=== PATIENT | female | born 1950 | race Caucasian/White ===

== ENCOUNTER 2020-11-15 16:27 | Emergency (ER) | payer MEDICARE, BC, OTHER, SELFPAY ==
[2020-11-15] VITALS (59 sets, daily range): BP systolic 53–139; BP diastolic 24–107; PULSE 87–173; RESP 13–41; TEMP 36.8; O2SAT 38–100
--- NOTE | ~2020-11-15 | XR_ITS ---
XR chest ET placement 11/15/2020 21:21 Indication: Endotracheal tube placement Procedure: AP portable chest Comparison: 11/15/2020 Findings: Endotracheal tube tip 2.3 cm above the lizzie. NG tube in the stomach. Cardiomegaly. There is persistent right perihilar and basilar airspace disease. Developing left perihilar airspace diseas e with peribronchial thickening. Small right pleural effusion. Impression: 1: Developing bilateral airspace disease which may represent edema or pneumonia. 2: Cardiomegaly. 3: Small right pleural effusion. Reviewed, dictated and finalized at location A. Impression: 1: Developing bilateral airspace disease which may represent edema or pneumonia . 2: Cardiomegaly. 3: Small right pleural effusion.
--- NOTE | ~2020-11-15 | CT_ITS ---
EXAMINATION: CT BRAIN W/O DATE: 11/15/2020 21:49 INDICATION: Intubation. Sepsis. TECHNIQUE: Computed tomography (CT) of the head was performed without intravenous contrast. The dose- length product was 681.00 mGy-cm. Automated exposure control and iterative reconstruction technique w ere employed. COMPARISON: No prior studies for comparison. FINDINGS: Normal brain parenchymal volume for age. Normal smith-white differentiation. No acute intrac ranial hemorrhage, infarction, mass or mass effect. No ventriculomegaly or midline shift. Midline sagittal images demonstrate a normal corpus callosum, c raniovertebral junction and sella turcica. Basilar cisterns are patent. Paranasal sinuses and mastoids are pneumatized. No depressed skull fractures. IMPRESSION: 1. No acute intracranial abnormality. Reviewed, dictated and finalized at location A.
--- NOTE | ~2020-11-15 | CT_ITS ---
EXAMINATION: CT chest abdomen pelvis w con DATE: 11/15/2020 21:55 CDT INDICATION: CHF. Sepsis. Pneumonia. TECHNIQUE: Computed tomography (CT) of the chest, abdomen, and pelvis was performed with 100 cc Omnip aque 350 intravenous contrast. The dose-length product was 681.00 mGy-cm. Automated exposure control and iterative reconstruction technique were employed. COMPARISON: None FINDINGS: CHEST CT: There are bilateral pleural effusions, partially loculated on the right. There is cardiomegaly. There is contrast reflux into the IVC and hepatic veins, consistent with right heart failure. There is an endotracheal tube present. NG tube in the stomach. There is mediastinal lymphadenopathy. For instance right paratracheal lymph node measures 11 mm short axis. There are patchy areas of groundglass opaci fication of the upper lobes and more confluent in the right lower lobe. There is dependent atelectasi s. ABDOMEN/PELVIS CT: There is moderate peripancreatic fat stranding extending into the mesentery, consistent with pancreat itis. Clinically correlate. There is mild diffuse subcutaneous edema. The spleen, adrenal glands and kidneys are unremarkable. There is fluid in the right paracolic gutter. Jimenez catheter present in the bladder. There is moderate thoracic and lumbar spondylosis. No focal lytic or blastic lesions. Hepat ic steatosis. IMPRESSION: 1. Multifocal groundglass consolidation most confluent in the right lower lobe, favoring pneumonia. 2: Bilateral pleural effusions, right greater than left, loculated on the right. 3: Contrast refluxing IVC and hepatic veins, consistent with right heart failure. 4: Moderate stranding of the peripancreatic fat, compatible with pancreatitis. Correlate with lab gary ues. Reviewed, dictated and finalized at location A. IMPRESSION: 1. Multifocal groundglass consolidation most confluent in the right lower lobe, favoring pneumonia. 2: Bilateral pleural effusions, right greater than left, loculated on the right . 3: Contrast refluxing IVC and hepatic veins, consistent with right heart failur e. 4: Moderate stranding of the peripancreatic fat, compatible with pancreatitis. Correlate with lab values.
--- NOTE | ~2020-11-15 | XR_ITS ---
XR chest 2V 11/15/2020 17:07 Indication: Shortness of breath Procedure: PA and lateral views of the chest Comparison: No prior studies for comparison. Findings: Cardiomegaly. Airspace disease of the right mid and lower lung zone, consistent with pneumo adia. Small right pleural effusion. Left lung clear. No pneumothorax. Impression: 1: Airspace disease right mid and lower lung zone, compatible with pneumonia. 2: Small right pleural effusion. 3: Cardiomegaly. Reviewed, dictated and finalized at location A. Impression: 1: Airspace disease right mid and lower lung zone, compatible with pneumonia. 2: Small right pleural effusion. 3: Cardiomegaly.
--- NOTE | ~2020-11-15 | XR_ITS ---
XR abdomen NG/feed tube insert INDICATION: Evaluate NG tube position. TECHNIQUE: Limited KUB perform for evaluating NG tube . COMPARISON: No prior studies for comparison FINDINGS: NG tube tip in the stomach. Visualized bowel gas pattern is nonspecific.Small right pleura l effusion. IMPRESSION: 1: NG tube tip in the stomach. Reviewed, dictated and finalized at location A.
--- NOTE | 2020-11-15 16:36 | ECG_ITS ---
Measurements Intervals [place] Rate: 152 P: HI: 0 QRS: 9 QRSD: 90 T: 94 QT: 273 QTc: 435 Interpretive Statements ATRIAL FIBRILLATION WITH RAPID VENTRICULAR RESPONSE LOW QRS VOLTAGE IN PRECORDIAL LEADS BORDERLINE R WAVE PROGRESSION, ANTERIOR LEADS BORDERLINE T WAVE ABNORMALITY- LAT/HIGH LAT LEADS BASELINE WANDER- V5-V6 ABNORMAL ECG Electronically Signed On 11-15-2020 16:55:05 CDT by Lucio Elena D.O.
[2020-11-15 16:50] LABS: Basophils Percent Auto 0.3 % (0.2-1.2); Eosinophils Percent Auto 0.2 % (0-4.4); Hematocrit 46.4 % (37.0-47.0); Hemoglobin 14.9 g/dL (12.0-15.0); Immature Granulocyte Absolute 0.07 K/mm3 (0.00-0.031); Immature Granulocyte Percent A 0.5 % (0-0.5); Lymphocytes Absolute Auto 1.24 K/mm3 (0.9-3.2); Lymphocytes Percent Auto 9.6 % (18.3-44.2); Mean Corpuscular HGB Conc 32.1 g/dl (32-36); Mean Corpuscular Volume 90.3 fl (80-100); Mean Platelet Volume 11.2 fl (7.4-10.4); Monocytes Absolute Auto 1.7 K/mm3 (0.1-0.6); Neutrophils Absolute Auto 9.9 K/mm3 (1.3-6.7); Neutrophils Percent Auto 76.4 % (45.5-73.1); Platelet Count Result 182 k/mm3 (150-375); Red Blood Count 5.14 M/mm3 (4.2-5.4); Red Cell Distribution Width 15.4 % (11.5-14.5); White Blood Count 12.9 K/mm3 (4.5-10.0)
[2020-11-15 17:00] LABS: INR 1.5
[2020-11-15 17:01] LABS: Partial Thromboplastin Time 30.3 SECONDS (22.3-36.8)
--- NOTE | 2020-11-15 17:03 | ED.GENADULT ---
HPI - General Adult General Chief complaint: Extremity Problem,Nontraumatic Stated complaint: leg swelling Time Seen by Provider: 11/15/20 17:03 Source: patient and family Mode of arrival: ambulatory Limitations: no limitations History of Present Illness HPI narrative: Patient is a 70-year-old female with a history of hypothyroidism who presents for evaluation of shortness of breath and leg swelling. Patient states that she has been feeling unwell over the past 2 weeks. She states all of her symptoms started after she received the second covid vaccination in August. Patient states she started noticing intermittent palpitations with difficulty breathing. She denies any chest pain. She states that she has had increased leg swelling in the bilateral lower extremities without redness or significant calf pain. Patient denies any history of heart failure. She has not been seen by her primary care physician in quite some time, she relocated from [place] in 2011 and has not established with any physicians in the area. Patient does have a history of hypothyroidism (which she reports) with partial thyroidectomy in [place]. She has not been taking any thyroid medication. Patient denies any other history of diagnosed medical problems. She denies fever or chills. She states she has been dyspneic with minimal activity. Related Data Allergies Allergy/AdvReac Type Severity Reaction Status Date / Time doxycycline Allergy Hives Verified 11/15/20 17:48 Review of Systems Review of Systems: Narrative: CONSTITUTIONAL: Denies fever, chills, or sweats. EYES: Denies visual changes, redness, or discharge. ENT: Denies rhinorrhea, congestion, sore throat, or otalgia. CARDIOVASCULAR: Denies chest pain, reports palpitations and lower leg swelling RESPIRATORY: Reports shortness of breath GASTROINTESTINAL: Denies abdominal pain, nausea, vomiting, or diarrhea. GENITOURINARY: Denies dysuria or hematuria. SKIN: Denies rash or itching. MUSCULOSKELETAL: Denies back pain, joint pain, or myalgia. NEUROLOGIC: Denies headache, numbness, or weakness. [facility] Past Medical History Medical History (Updated 11/15/20 @ 23:26 by Yari Gillespie MD) Hypothyroidism Surgical History Surgical History (Updated 11/15/20 @ 21:36 by Mary Hernández PA-C) History of partial thyroidectomy Social History Social History (Updated 11/15/20 @ 21:36 by Mary Hernández PA-C) Social History: Patient lives in [place] with her . They moved here from [place] in 2011 and she has not seen a physician since that time. Non-smoker. No alcohol or illicit substance abuse. Her Johann is her surrogate decision-maker. Currently listed as a full code. Exam Narrative: Exam Narrative: GENERAL: Awake, alert, conversant HEAD: Normocephalic, atraumatic. EYES: PERRLA and EOMI. ENT: Nares clear, no rhinorrhea or epistaxis. Mucous membranes dry NECK: Supple. CHEST: No respiratory distress, breathing even and non labored, faint crackles bilaterally HEART: Tachycardic, irregular rate ABDOMEN:Non distended, non tender EXTREMITIES: Normal range of motion. Bilateral pitting edema to the knees, 3+ SKIN: Warm, dry, no rash. NEURO:No focal deficits. Alert and oriented x3 Course Vital Signs Vital signs: Vital Signs Temperature 36.8 C 11/15/20 16:31 Pulse Rate 87 11/15/20 16:31 Respiratory Rate 18 11/15/20 16:31 Blood Pressure 135/94 H 11/15/20 16:31 Pulse Oximetry 99 11/15/20 16:31 Temperature 36.8 C 11/15/20 16:31 Pulse Rate 138 H 11/15/20 23:15 Respiratory Rate 20 11/15/20 23:15 Blood Pressure 139/104 H 11/15/20 23:15 Pulse Oximetry 100 11/15/20 23:15 Procedures Intubation Intubation #1: Intubation Date: 11/15/20 Intubation Time: 20:00 Time out performed: Yes sedative: Etomidate Mg Given: 5 paralytic: Succinylcholine Mg Given: 100 Laryngoscope: other (VL) Tube
[2020-11-15 17:07] LABS: Anion Gap 9 mmol/L (8-16); Blood Urea Nitrogen 23 mg/dL (7-17); Carbon Dioxide 24 mmol/L (22-30); Chloride 100 mmol/L (98-107); Estimated CRCL calculation 47 ml/min; Estimated Glomerular Filt Rate 40; Glucose 126 mg/dL (65-105); Potassium 4.8 mmol/L (3.4-5.0); Sodium 133 mmol/L (137-145)
[2020-11-15 17:29] LABS: NT Pro B Type Natriuretic Pept 7420 pg/mL (5-100); Troponin I 0.035 ng/mL (0.000-0.034)
[2020-11-15] MEDS: FUROSEMIDE INJ 40 MG/4 ML VIAL 20 MG IV PUSH (18:22)
[2020-11-15] MEDS: AMIODARONE 150 MG/D5W 100 ML 150 MG/100 ML BAG 600 MG IV CONT (18:30)
[2020-11-15] MEDS: AMIODARONE 360 MG/D5W 200 ML 360 MG/200 ML BAG 33.33 MG IV CONT (18:36)
[2020-11-15 18:42] LABS: Lactic Acid Reflex 1.6 mmol/L (0.7-2.1)
[2020-11-15 18:52] LABS: NT Pro B Type Natriuretic Pept 6830 pg/mL (5-100)
--- NOTE | 2020-11-15 19:30 | PM.IMHP ---
H&P: HPI History of Present Illness Date/Time: 11/15/20 19:35 Chief Complaint: Shortness of breath and leg swelling. Narrative: This is a 70-year-old female with history of hypothyroidism who presented to the emergency department earlier this evening via private vehicle from home with complaints of shortness of breath. Unfortunately the patient's condition began to decline shortly after I entered her room and she was ultimately intubated and thus I did not get much history from her. From what I can gather she is originally from [place], moved to the area in 2011, and she has only seen a physician on one occasion since the move. According to her family, she has been increasingly reliant on a cane over the last couple of months, mainly due to pain in her knees. The last 2 of weeks she has been sleeping on her couch ?as she has just not been able to get comfortable.? She never fully elaborated to her family what that meant but it sounds as though she has had issues with increasing shortness of breath and possible orthopnea. Her is certain that she has sleep apnea given heavy snoring and witnessed apneic episodes as recent as last evening. Over the last 2 days it sounds like she has not been able to do much around the home due to the shortness of breath and family members encourage her to come to the emergency department today where she was found to be in atrial fibrillation with rapid ventricular response on arrival. She was started on amiodarone due to soft blood pressures and it was shortly after starting the amiodarone that she began to feel increasingly unwell which was right about the time I entered the room. Her blood pressure began trending downward, a central line was placed, and she was started on norepinephrine and vasopressin. She was also intubated for impending respiratory failure as it was felt that she would not do well with BiPAP due to confusion and worsening mentation. Her ABG showed a severe metabolic acidosis and she was given a couple of amps of sodium bicarbonate. After she was stabilized she was sent for a CT of the chest, abdomen, and pelvis which showed evidence of extreme right heart failure. It should also be noted that bedside ultrasound was performed with an ejection fraction estimated to be 15 to 20%. [address] also showed findings of right lower lobe pneumonia with effusion as well as possible pancreatitis. She has since been started on broad-spectrum antibiotics. She did receive a total of 2 liters of isotonic fluid in the emergency department. After multiple discussions with the emergency department physician, the distribution specialist, and the asset protection professional it was felt that the patient would best be served at a tertiary care facility given the gravity of her illness. Ultimately she was accepted at [facility] and she was transferred there via air. Review of Systems Review of Systems: Narrative: Review of systems was unable to be conducted given the patient's rapid decline in condition. She completed her COVID vaccination series in August 2020. [facility] Past Medical History Medical History Hypothyroidism Surgical History Surgical History History of partial thyroidectomy Family History Family History (Updated 11/16/20 @ 00:20 by Mary Hernández PA-C) Father , Father in his 40s from an acute MT. Acute myocardial infarction Social History Social History (Updated 11/16/20 @ 00:20 by Mary Hernández PA-C) Social History: The patient lives in [place] with her . Retired from secretarial work. She has 2 children.. Non-smoker. No alcohol or illicit substance abuse. Her Johann is her surrogate decision-maker. Code status: Full code. Meds Home Medications and Allergies Allergies Allergy/AdvReac Type Severity Reaction Status Date / Time doxycycline
--- NOTE | 2020-11-15 19:35 | PC.NURSE ---
called into ED 9 by MD and charge nurse. pt is grunting, gasping. initially on 2L nc and now on 4L nc . 1937: 4 mg zofran given per ivp. 1937: accucheck 184. pt now answering yes/no questions but still gasping. amiodarone stopped and 500 ml ns bolus infusing. 1940: HR 129 BP 135/113 Resps 40 O2 100% on4L nc. 1942: Levophed started at 5 mcg/min. bedside US exam done by sebastián fish and ED MD. skin color appears morejon. pt moaning and gasping. 1947: HR 136 afib. Pt c/o back pain. manual bp done by sebastián fish. 80/palp.
[2020-11-15] MEDS: NOREPINEPHRINE 8 MG/D5W 250 ML 8 MG/250 ML BAG 9.38 MG IV CONT (19:43)
--- NOTE | 2020-11-15 19:46 | ECG_ITS ---
Measurements Intervals [place] Rate: 127 P: MS: 0 QRS: 33 QRSD: 90 T: 113 QT: 320 QTc: 466 Interpretive Statements ATRIAL FIBRILLATION WITH RAPID VENTRICULAR RESPONSE INCOMPLETE RIGHT BUNDLE BRANCH BLOCK NONSPECIFIC T-WAVE ABNORMALITY- ANTEROLAT/HIGH LAT LEADS BASELINE ARTIFACT- I, III, AVL ABNORMAL ECG Electronically Signed On 11-20-2020 13:19:50 CDT by Lucio Elena D.O.
[2020-11-15] MEDS: RAPID SEQUENCE INTUBATION KIT 1 EACH (19:50)
[2020-11-15 19:51] LABS: Glucose Point of Care 184 mg/dl (65-105)
--- NOTE | 2020-11-15 19:54 | PC.NURSE ---
pt gasping. bag mask ventilations provided by rt therapist in room. 1954 appears to be seizing with 1956: 5 mg etomidate given; 100 mg sux given ivp for rsi. 1957: bagging pt continues by ED RN Russ. RT remains at bedside. 1958: pt intubated with glidescope. 1999: color change noted to co2 detector. 2020: pt intubated 7.5 tube ; 24 @ lip. hr 92 bp 53/15 per monitor. 2002: levophed to 15 mcg/ min
--- NOTE | 2020-11-15 20:07 | PC.NURSE ---
2007: NA 1 Liter infusing. 2008:BP 45/29. 2010: pt on ventilator per RT. Levophed to to 18 mcg/min. 2016: HR 141 Resps 20 O2 sats 38 via forehead 2019 femoral art. stick attempted by abe for abg.
--- NOTE | 2020-11-15 20:21 | PC.NURSE ---
2021: HR 130 BP 69/52 O249% on vent. 2024: vasopression started at .04.
[2020-11-15] MEDS: HYDROCORTISONE SODIUM SUCCINATE 100 MG/2 ML VIAL IV PUSH (20:25)
--- NOTE | 2020-11-15 20:29 | P.HP_ITS ---
H&P: HPI History of Present Illness Date/Time: 11/15/20 20:29 Review of Systems Review of Systems: ROS unobtainable: Yes unobtainable due to endotracheal tube and unobtainable due to medical condition [facility] Social History Social History (Updated 11/15/20 @ 17:32 by Yari Gillespie MD) Smoking status: Never smoker Alcohol intake: never Substance use: never Living arrangements: with family Gender identity (if verbalized by the patient): Female Meds Home Medications and Allergies Allergies Allergy/AdvReac Type Severity Reaction Status Date / Time doxycycline Allergy Hives Verified 11/15/20 17:48 Vital Signs Vital Signs - 24 hr 11/15/20 16:31 11/15/20 17:14 11/15/20 18:30 Temperature 98.2 F Pulse Rate 87 161 H 169 H Respiratory Rate 18 26 H Blood Pressure 135/94 H 133/104 H 114/104 H Pulse Oximetry 99 97 11/15/20 18:33 11/15/20 18:36 11/15/20 18:39 Temperature Pulse Rate 173 H 166 H 161 H Respiratory Rate 33 H Blood Pressure 121/107 H 113/78 Pulse Oximetry 99 H&P: Results Labs Labs: Short CBC 11/15/20 Range/Units 16:40 WBC 12.9 H (4.5-10.0) K/mm3 Hgb 14.9 (12.0-15.0) g/dL Hct 46.4 (37.0-47.0) % Plt Count 182 (150-375) k/mm3 BMP 11/15/20 16:40 Sodium 133 L Potassium 4.8 Chloride 100 Carbon Dioxide 24 BUN 23 H Creatinine 1.30 H Glucose 126 H Calcium 9.0 Cardiac Enzymes 11/15/20 Range/Units 16:40 Troponin I 0.035 H (0.000-0.034) ng/mL
--- NOTE | 2020-11-15 20:29 | PC.NURSE ---
2029: central line attempt unsuccessful. ED MD Gillespie to place IJ. HR 123 Resp 28 BP 78/64 2034: OG placed 63 @ teeth. 2037: 40 mcg of fentanyl ivp to Left wrist.
--- NOTE | 2020-11-15 20:38 | PC.NURSE ---
2037: HR 112 RR 35 BP 118/100
--- NOTE | 2020-11-15 20:41 | PC.NURSE ---
soft restaints to BUE placed for pt pulling at lines/tubes. OG measurement: 62 @ lip.
--- NOTE | 2020-11-15 20:46 | PC.NURSE ---
2046: femoral central line insertion attempt continues.
--- NOTE | 2020-11-15 20:49 | PC.NURSE ---
2048: levophed decreased to 15 mcg/min
[2020-11-15] MEDS: fentaNYL CITRATE INJ (*CRX) 100 MCG/2 ML VIAL 40 MCG IV PUSH (20:50)
--- NOTE | 2020-11-15 20:56 | PC.NURSE ---
2056: 25 mcg fentanyl given. pt intermittently pulling at lines/tubing.
--- NOTE | 2020-11-15 20:58 | PC.NURSE ---
2057: RIGHT femoral central line placed by Mary.
--- NOTE | 2020-11-15 21:03 | PC.NURSE ---
2 mg versed given ivp by ED RN Russ per verbal order of ANA M Hernandez in room.
[2020-11-15] MEDS: SODIUM CHLORIDE 0.9% IV 500 ML 200 ML (21:23)
[2020-11-15] MEDS: ONDANSETRON INJ 4 MG/2 ML VIAL (21:23)
[2020-11-15] MEDS: SODIUM BICARBONATE 8.4% 50 MEQ/50 ML SYRINGE IV PUSH (21:26)
[2020-11-15] MEDS: VASOPRESSIN INJ 100 UNITS in DEXTROSE 5% 95 ML IV CONT (21:27)
[2020-11-15] MEDS: fentaNYL CITRATE INJ (*CRX) 100 MCG/2 ML VIAL (22:02)
[2020-11-15 22:41] LABS: Basophils Percent Auto 0.4 % (0.2-1.2); Eosinophils Percent Auto 0.1 % (0-4.4); Hematocrit 46.7 % (37.0-47.0); Hemoglobin 14.7 g/dL (12.0-15.0); Immature Granulocyte Absolute 0.15 K/mm3 (0.00-0.031); Immature Granulocyte Percent A 1.4 % (0-0.5); Lymphocytes Absolute Auto 1.21 K/mm3 (0.9-3.2); Lymphocytes Percent Auto 11.4 % (18.3-44.2); Mean Corpuscular HGB Conc 31.5 g/dl (32-36); Mean Corpuscular Hemoglobin 29.3 pg (26-34); Mean Corpuscular Volume 93.2 fl (80-100); Monocytes Absolute Auto 0.7 K/mm3 (0.1-0.6); Neutrophils Absolute Auto 8.4 K/mm3 (1.3-6.7); Neutrophils Percent Auto 79.7 % (45.5-73.1); Platelet Count Result 175 k/mm3 (150-375); Red Blood Count 5.01 M/mm3 (4.2-5.4); Red Cell Distribution Width 15.4 % (11.5-14.5); White Blood Count 10.6 K/mm3 (4.5-10.0)
[2020-11-15 22:54] LABS: INR 1.8; Prothrombin Time 21.5 Seconds (11.1-14.7)
[2020-11-15 22:55] LABS: Fibrinogen 181 mg/dl (215-510)
[2020-11-15] MEDS: FENTANYL 2,500MCG/NS250ML(*CRX 2,500 MCG/250 ML BAG IV CONT (23:05)
[2020-11-15 23:26] LABS: Alanine Aminotransferase 139 U/L (4-35); Albumin Level 2.9 g/dL (3.5-5.1); Alkaline Phosphatase 120 U/L (38-126); Anion Gap 13 mmol/L (8-16); Aspartate Amino Transferase 263 U/L (14-36); Bilirubin,Total 2.5 mg/dL (0.2-1.3); Blood Urea Nitrogen 21 mg/dL (7-17); Calcium 7.6 mg/dL (8.4-10.2); Carbon Dioxide 18 mmol/L (22-30); Chloride 100 mmol/L (98-107); Estimated CRCL calculation 39 ml/min; Estimated Glomerular Filt Rate 32; Glucose 152 mg/dL (65-105); Lipase 127 U/L (23-300); Magnesium 2.1 mg/dL (1.6-2.3); Potassium 5.1 mmol/L (3.4-5.0); Sodium 131 mmol/L (137-145); Troponin I 0.197 ng/mL (0.000-0.034)
[2020-11-16 00:11] LABS: PCO2 ABG 24.7 mmHg (35.0-45.0); PO2 ABG 285.9 mmHg (80.0-100.0)
[2020-11-16 00:12] LABS: HCO3 ABG 8.9 mEq/l (22.0-26.0)
[2020-11-16 00:13] LABS: Alveolar/Arterial O2 Gradient 402.4 mmHg; Base Excess ABG -17.7 mEq/l (+/-2.0); Oxygen Content ABG 22.3 %vol (16.0-22.0); Oxygen Saturation ABG 99.5 % (95.0-100.0); Total Hemoglobin 15.6 g/dL (12.0-18.0)
[2020-11-16 00:14] LABS: Device VENTILATOR; Fractional Inspired Oxygen 100 %; Oxyhemoglobin 0.4 % THb (90.0-100.0); PO2 FiO2 Ratio Arterial Blood 2.86 %; Site Drawn ARTLINE
[2020-11-16 00:15] LABS: Arterial Blood Gas PEEP 5 cmH2O; Arterial Blood Gas Tidal Volume 450 ml; Arterial Blood Gas Vent Mode CMV; Arterial Blood Gas Ventilator rate 20 /MIN
[2020-11-16 00:17] LABS: PCO2 ABG 38.8 mmHg (35.0-45.0); PO2 ABG 21.1 mmHg (80.0-100.0); pH ABG 7.205 (7.350-7.450)
[2020-11-16 00:18] LABS: Base Excess ABG -12.2 mEq/l (+/-2.0); Oxygen Saturation ABG 26.3 % (95.0-100.0); Total Hemoglobin 14.9 g/dL (12.0-18.0)
[2020-11-16 00:19] LABS: Alveolar/Arterial O2 Gradient 653.1 mmHg; Oxygen Content ABG 4.2 %vol (16.0-22.0); Oxyhemoglobin 20.2 % THb (90.0-100.0)
[2020-11-16 00:20] LABS: Arterial Blood Gas PEEP 5 cmH2O; Arterial Blood Gas Tidal Volume 450 ml; Arterial Blood Gas Vent Mode CMV; Arterial Blood Gas Ventilator rate 20 /MIN; Device VENTILATOR; Fractional Inspired Oxygen 100 %; Site Drawn ARTLINE
[2020-11-16 16:11] LABS: SARS-CoV-2 RNA PCR Negative
--- NOTE | 2020-12-05 12:59 | PC.NURSE ---
LATE ENTRY This note is being entered to document information to the patient's record. The following information was omitted on [11/15/20], by [Russ Selby]. Cefeime infusion completed at 2330. 50ml Vancomycin infusion completed at 0045.
== END 2020-11-16 00:42 | disposition short-term general hospital (02) ==
LOC: ANHED 18:28 → ANHICU 23:18
PROVIDERS: Physician Assistant; Emergency Provider Emergency Medicine; PCP Family Medicine
DX: J96.00 Acute respiratory failure, unspecified whether with hypoxia or hypercapnia (principal); I48.91 Unspecified atrial fibrillation; A41.9 Sepsis, unspecified organism; J18.9 Pneumonia, unspecified organism; R57.0 Cardiogenic shock; E89.0 Postprocedural hypothyroidism; Z20.822 Contact with and (suspected) exposure to COVID-19; I45.10 Unspecified right bundle-branch block; R94.31 Abnormal electrocardiogram [ECG] [EKG]; I51.7 Cardiomegaly; R91.8 Other nonspecific abnormal finding of lung field; R93.89 Abnormal findings on diagnostic imaging of other specified body structures
CPT/HCPCS: 31500; 36415; 36556; 36600; 70450; 71046; 71260; 74177; 80048; 80053; 82805; 82948; 83605; 83690; 83735; 83880; 84443; 84484; 85025; 85380; 85384; 85610; 85730; 87040; 93005; 94002; 96365; 96366; 96367; 96368; 96375; 96376; 99291; C1751; C9803; J0282; J0456; J0692; J0696; J1720; J1940; J2250; J2405; J3010; J3370; J7030; J7040; Q9967; U0003; U0005

== ENCOUNTER 2021-01-14 10:59 | Outpatient (CLI) | payer MEDICARE, BC, OTHER, SELFPAY ==
--- NOTE | ~2021-01-14 | XR_ITS ---
XR chest 2V 01/14/2021 11:23 Indication: Pneumonia. Procedure: 2 view chest Comparison: 11/15/2020 Findings: Heart size normal. Right perihilar atelectasis/scarring. No acute focal pneumonia, pleural effusion, edema or pneumothorax. Impression: 1: Chronic right perihilar atelectasis/scarring. Reviewed, dictated and finalized at location A. Impression: 1: Chronic right perihilar atelectasis/scarring.
== END 2021-01-14 11:00 | disposition home or self-care (01) ==
LOC: ANHIMG 11:10
PROVIDERS: PCP Family Medicine; Visit Provider Family Medicine
DX: J18.9 Pneumonia, unspecified organism (principal); R91.8 Other nonspecific abnormal finding of lung field
CPT/HCPCS: 71046

== ENCOUNTER 2022-01-25 09:28 | Outpatient (CLI) | payer MEDICARE, BC, OTHER, SELFPAY ==
--- NOTE | ~2022-01-25 | DEXA_ITS ---
Bone Density Report Name: EDITA GURROLA Age: 71 Sex: Female Ethnicity: White Date of : 1950 Indication: postmenopausal; screening for osteoporosis; Referring Provider: DALIA DIAZ Study: Bone densitometry was performed. Exam Date: January 25, 2022 Accession number: [id number] Bone Density: Region BMD T-score Z-score Classification AP Spine(L1-L4) 1.062 0.1 2.3 Normal Femoral Neck (Left) 0.589 -2.3 -0.5 Osteopenia Total Hip (Left) 0.724 -1.8 -0.2 Osteopenia Femoral Neck (Right) 0.601 -2.2 -0.4 Osteopenia Total Hip (Right) 0.791 -1.2 0.3 Osteopenia Total Hip Mean 0.757 -1.5 0.1 Osteopenia World Health Organization criteria for BMD impression classify patients as: Normal (T-score at or above -1.0), Osteopenia (T-score between -1.0 and -2.5), or Osteoporosis (T-score at or below -2.5). 10-year Fracture Risk(1): Major Osteoporotic Fracture 12% Hip Fracture 2.5% Reported Risk Factors: [place] (), Neck BMD=0.589, BMI=39.7 (1) FRAX(R) Version 3.08. Fracture probability calculated for an untreated patient. Fracture probability may be lower if the patient has received treatment. Clinical Information Provided by Patient: Has used the following medications: Vitamin D, Calcium Has the following medical conditions: partial thyroid removal Patient maximum height was 65 Menopause Age: 55 Drinks caffeinated beverages Onset of menses at age 12 Number of children 2 Impression: The patient has low bone mass, based on the Left Femoral Neck T-score. The patient has an estimated ten-year risk of hip fracture of 2.5% and an estimated ten-year risk of major fracture of 12%, based on the WHO FRAX algorithm. Discussion: BONE DENSITY IS LOW AT ONE OR MORE SKELETAL SITES. This patient's lowest T-score is low at one or more skeletal sites. It meets the World Health Organization's (WHO) criteria for ?low bone mass? (T-score between -1.0 and -2.5). The patient's 10-year risk of fracture as calculated by FRAX is less than the threshold where pharmacological therapy is recommended by the National Osteoporosis Foundation (NOF). However, all treatment decisions require clinical judgment and consideration of individual patient factors, including patient preferences, comorbidities, previous drug use, risk factors not captured in the FRAX model (e.g., frailty, falls, vitamin D deficiency, increased bone turnover, interval significant decline in bone density) and possible under or overestimation of fracture risk by FRAX. The patient should follow a healthful lifestyle (good nutrition with adequate calcium and vitamin D, and appropriate weight-bearing exercise). Follow-Up: Consider repeating this study in 2 to 3 years to reassess this patient's status, or sooner if there is some new clinica
--- NOTE | ~2022-01-25 | MM_ITS ---
EXAMINATION: MM screening [facility] BI w jayleen HISTORY: Screening mammogram TECHNIQUE: Craniocaudal and mediolateral oblique 3-D tomosynthesis images were obtained and synthetic 2-D images were generated. CAD analysis was submitted and interpreted. COMPARISON: None, baseline BREAST PARENCHYMAL COMPOSITION: There are scattered areas of fibroglandular density. FINDINGS: RIGHT BREAST: There is no suspicious mass, calcification, or architectural distortion to suggest libia gnancy. LEFT BREAST: An asymmetry is present in the posterior third of the breast on the craniocaudal view. IMPRESSION: 1. Left breast asymmetry. 2. Additional mammographic views and possible breast ultrasound are recommended. BI-RADS Category 0: Incomplete: Needs additional imaging evaluation. Reviewed, dictated and finalized at location A. IMPRESSION: 1. Left breast asymmetry. 2. Additional mammographic views and possible breast ultrasound are recommended . BI-RADS Category 0: Incomplete: Needs additional imaging evaluation.
== END 2022-01-25 09:29 | disposition home or self-care (01) ==
LOC: ANHIMG 09:29
PROVIDERS: PCP Family Medicine; Visit Provider Family Medicine
DX: Z12.31 Encounter for screening mammogram for malignant neoplasm of breast (principal); Z78.0 Asymptomatic menopausal state; M85.89 Other specified disorders of bone density and structure, multiple sites; R92.8 Other abnormal and inconclusive findings on diagnostic imaging of breast
CPT/HCPCS: 77063; 77067; 77080

== ENCOUNTER 2022-09-05 10:00 | Outpatient (RCR) | payer MEDICARE, BC, OTHER, SELFPAY ==
--- NOTE | 2022-08-07 16:48 | PTOPEVAL1 ---
Assessment and note entered by Belgica Del Toro, PT Evaluation Information Assessment Status Evaluation Diagnosis bilat knee arthritis Subjective Information Pt reports has been a couple years standing long periods right knee would get stiff. This past year, last summer tripped and landed on right knee. Went to chiropractor who corrected patellar alignment and this helped but has still had issues. Seems has been getting worse since then. Left knee is the stronger knee, but started having pain on the outside lower left leg. Bends easier also. Reported Pain Level Pain Score 0,0: Self Report Assessment PT Clinical Summary Pt presents w/ c/o bilateral knee pain. Both knees demo decreased active and passive range of motion , both with lateraly deviated patella, decreased flexibility, decreased strength, and demo's abnormal gait. Pt also reports pain in both knees effecting her ability to perform ambulation and activities. Pt will benefit from physical therapy to address deficits, improve pain and improve function. Plan of Care Interventions Electrical Stimulation,Gait Training,Hot Pack/Cold Pack,Manual Therapy,Neuro Re-education,Patient/ Caregiver Educati,Therapeutic Activities, Therapeutic Exercise,Ultrasound PT Services Indicated Yes Treatment Frequency and 2x weekly x 8 weeks Duration These treatments will address the objective and functional deficits as defined above. The patient will be advanced safely and appropriately in order for the patient to progress towards his/her prior level of function. Additional exercises will be introduced and as well as a comprehensive home exercise program upon discharge, if needed, ?to ensure carryover of functional gains achieved in the clinic. This treatment plan has been reviewed and agreement upon by the patient.
--- NOTE | 2022-09-05 16:29 | PTOPDC ---
Assessment and note entered by Belgica Del Toro, PT Assessment Status Discharge Diagnosis bilat knee arthritis Subjective Information Pt reports has seen some improvement in her walking, feels she can walk more normally. Is more conscious of bending her right knee, better mechanics. Understands better what they should be. Does feel stronger as well. Feels that some pains at night when shifting positions is better. Reports feeling 40% improved overall Reported Pain Level Pain Score 0,0: Self Report Additional Pain Score Comments Feels left knee is stiffer than it used to be Assessment PT Clinical Summary Pt reports feeling stronger and that she is walking better. Has less discomfort with turning in bed at night. Pt reports feeling only 40% improved overall. She demo's improved range of motion, and improved strength overall. Is going to [facility] in September to discuss further options. Pt has been educated on returning to therapy if needed. Pt being discharged due to lack of progress.
== END 2022-09-08 08:14 | disposition home or self-care (01) ==
LOC: ANHHIPT 10:00
PROVIDERS: PCP Family Medicine; Visit Provider Nurse Practitioner
DX: M17.0 Bilateral primary osteoarthritis of knee (principal)
CPT/HCPCS: 97014; 97110; 97112; 97162; 97530; G0283